=== PATIENT | male | born 1985 | race Caucasian/White ===

== ENCOUNTER 2017-03-27 14:45 | Emergency (ER) | payer MEDICAID ==
[~2017-03-27] VITALS: Ht 185.4 cm; Wt 110.0 kg
[~2017-03-27 14:45] MED LIST: PRIL40CA PO; PROT40TA PO; ZOFR4TAB3 SL
[2017-03-27 14:47] VITALS: BP 134/91; PULSE 108; RESP 16; O2SAT 98
--- NOTE | 2017-03-27 14:57 | PD ---
Physical Exam Date Seen by Provider: Mar 27, 2017 Time Seen by Provider: 14:55 Narrative 32 yo male here for right flank pain. history of kidney stones. has had this for 2 weeks. Went x 2 to [facility]. Diagnosed with UTI and muscle strain. No injury per patient. Nothing seems to help it. Feels nauseous. Vitals are stable in triage. Awaiting Bed placement. Data Data Last Documented VS Vital Signs Date Time Temp Pulse Resp B/P (MAP) Pulse Ox O2 Delivery O2 Flow Rate FiO2 03/27/17 14:47 108 16 134/91 (105) 98 MDM Medical Record Reviewed: Yes Supervised Visit with KAYLENE: No Rickey Bowden Mar 27, 2017 14:57
--- NOTE | 2017-03-27 17:07 | PD ---
HPI . Bilateral flank pain Chief Complaint: Flank/Kidney Pain Time Seen by Provider: 16:40 Travel History International Travel<30 days: No Contact w/Intl Traveler<30days: No Traveled to known affect area: No History of Present Illness HPI This patient presents with a two-week history of bilateral flank pain. He states that it feels like someone is ripping his kidneys out of his body. The pain is severe. There is no exacerbating or relieving factor. Patient states that he's been seen at an outside hospital 2. He states that he was diagnosed with musculoskeletal pain the first time and with a urinary tract infection the second time. He states that his symptoms persist so he decided to come see us today. PFSH Past Medical History Diminished Hearing: No Diverticulitis: Yes Inguinal Hernia: Yes (LEFT SIDE REPAIRED) Kidney Stones: Yes Immunizations Current: Yes Ulcer: Yes Tetanus Vaccination: < 5 Years Influenza Vaccination: No ?: Not Past Surgical History Abdominal Surgery: Yes (HERNIORRHAPHY) Other Surgery: Yes (HERNIA REPAIR IN CHILDHOOD) Social History Alcohol Use: No Tobacco Use: No (QUIT 3 YEARS AGO, 10 PACK YEARS ) Substance Use: No Allergies-Medications (Allergen,Severity, Reaction): Coded Allergies: No Known Allergies (Verified , 03/14/16) Reported Meds & Prescriptions Reported Meds & Active Scripts Active Protonix (Pantoprazole Sodium) 40 Mg Tab 40 Mg PO DAILY Zofran ODT (Ondansetron HCl) 4 Mg Tab 4 Mg SL Q6H PRN FOR NAUSEA/VOMITING Reported Prilosec 40 mg cap (Omeprazole) 40 Mg Cap 40 Mg PO DAILY Review of Systems Except as stated in HPI: all other systems reviewed are Neg General / Constitutional: No: Fever, Chills Gastrointestinal: No: Nausea, Vomiting, Diarrhea Genitourinary: Positive: Flank Pain Physical Exam Narrative GENERAL: Patient looks pretty comfortable. SKIN: Warm and dry. HEAD: Atraumatic. Normocephalic. EYES: Pupils equal and round. ENT: No nasal bleeding or discharge. Mucous membranes pink and moist. NECK: Trachea midline. Neck is supple. CARDIOVASCULAR: Regular rate and rhythm. RESPIRATORY: No accessory muscle use. GASTROINTESTINAL: Abdomen soft, non-tender, nondistended. MUSCULOSKELETAL: No obvious deformities. No edema. Complains of pain on percussion of both CVAs. NEUROLOGICAL: Awake and alert. No obvious cranial nerve deficits. Motor grossly within normal limits. Normal speech. PSYCHIATRIC: Appropriate mood and affect; insight and judgment normal. Data Data Last Documented VS Vital Signs Date Time Temp Pulse Resp B/P (MAP) Pulse Ox O2 Delivery O2 Flow Rate FiO2 03/27/17 16:54 18 03/27/17 14:47 108 134/91 (105) 98 Orders Orders Complete Blood Count With Diff (03/27/17 14:57) Comprehensive Metabolic Panel (03/27/17 14:57) Lipase (03/27/17 14:57) Urinalysis - C+S If Indicated (03/27/17 14:57) Ct Abd/Pel W/O Iv Contrast (03/27/17 16:40) Ketorolac Inj (Toradol Inj) (03/27/17 17:15) Ondansetron Inj (Zofran Inj) (03/27/17 17:15) Urine Culture (03/27/17 16:50) Ceftriaxone Inj (Rocephin Inj) (03/27/17 18:00) Prochlorperazine Inj (Compazine Inj) (03/27/17 18:00) Diphenhydramine Inj (Benadryl Inj) (03/27/17 18:00) Sodium Chlor 0.9% 1000 Ml Inj (Ns 1000 M (03/27/17 18:00) Labs Laboratory Tests Test 03/27/17 16:50 White Blood Count 10.8 TH/MM3 Red Blood Count 4.96 MIL/MM3 Hemoglobin 15.5 GM/DL Hematocrit 46.1 % Mean Corpuscular Volume 92.9 FL Mean Corpuscular Hemoglobin 31.2 PG Mean Corpuscular Hemoglobin Concent 33.6 % Red Cell Distribution Width 14.2 % Platelet Count 276 TH/MM3 Mean Platelet Volume 7.8 FL Neutrophils (%) (Auto) 53.9 % Lymphocytes (%) (Auto) 35.5 % Monocytes (%) (Auto) 8.1 % Eosinophils (%) (Auto) 2.1 % Basophils (%) (Auto) 0.4 % Neutrophils # (Auto) 5.8 TH/MM3 Lymphocytes # (Auto) 3.8 TH/MM3 Monocytes # (Auto) 0.9 TH/MM3 Eosinophils # (Auto) 0.2 TH/MM3 Basophils # (Auto) 0.0 TH/MM3 CBC Comment DIFF FINAL Differential Comment Urine Color YELLOW Urine Turbidity HAZY Urine pH 5.5 Urine Specific [place] 1.028 Urine Protein TRACE mg/dL Urine Glucose (UA) NEG mg/dL Urine Ketones NEG mg/dL Urine Occult Blood MOD Urine Nitrite NEG Urine Bilirubin NEG Urine Urobilinogen LESS THAN 2.0 MG/DL Urine Leukocyte Esterase LARGE Urine RBC 93 /hpf Urine WBC 20 /hpf Urine Squamous Epithelial Cells 1 /hpf Urine Bacteria MOD /hpf Microscopic Urinalysis Comment CULTURE INDICATED Blood Urea Nitrogen 18 MG/DL Creatinine 1.22 MG/DL Random Glucose 83 MG/DL Total Protein 8.1 GM/DL Albumin 4.3 GM/DL Calcium Level 9.5 MG/DL Alkaline Phosphatase 52 U/L Aspartate Amino Transf (AST/SGOT) 17 U/L Alanine Aminotransferase (ALT/SGPT) 28 U/L Total Bilirubin 0.2 MG/DL Sodium Level 141 MEQ/L Potassium Level 3.9 MEQ/L Chloride Level 107 MEQ/L Carbon Dioxide Level 25.4 MEQ/L Anion Gap 9 MEQ/L Estimat Glomerular Filtration Rate 69 ML/MIN Lipase 528 U/L MDM Medical Decision Making Medical Screen Exam Complete: Yes Emergency Medical Condition: Yes Medical Record Reviewed: Yes (I have requested his records from the outside hospital. The records from the outside hospital will be unobtainable today.) Differential Diagnosis Differential diagnosis of flank pain includes but is not limited to kidney stone , pyelonephritis, musculoskeletal pain, PE Narrative Course Patient presents complaining with bilateral flank pain. He has been seen at an outside hospital twice for this. I have requested those records. In the meantime, routine blood work, UA and CT have been ordered. CT: There is a stable 3.7 mm right lower pole renal calculus. This is nonobstructing. There is no hydronephrosis or hydroureter. The adrenal glands, spleen, pancreas, gallbladder, liver and left kidney, stomach, small bowel, large bowel and appendix are normal. Urinary bladder is unremarkable. There is no evidence of bowel obstruction, free fluid or free air. No adenopathy or aneurysm. Few scattered foci of atherosclerotic calcification are noted in the iliac vasculature. CBC & BMP Diagram 03/27/17 16:50 Total Protein 8.1, Albumin 4.3, Calcium Level 9.5, Alkaline Phosphatase 52, Aspartate Amino Transf (AST/SGOT) 17, Alanine Aminotransferase (ALT/SGPT) 28, Total Bilirubin 0.2 UA>>large LE, 93 RBCs, 20 WBCs, mod bact. Rocephin has been ordered. The patient reports that he has been on Cipro for at least 3 days. His antibiotic will be changed to doxycycline. He does not have any evidence of pyelonephritis. He is afebrile with a normal white blood count. There is no mention of any inflammatory changes around his kidneys on the CT report. Diagnosis Primary Impression: Flank pain Additional Impression: Urinary tract infection Qualified Codes: N30.00 - Acute cystitis without hematuria Patient Instructions: Flank Pain (ED), General Instructions, Urinary Tract Infection in Men (DC) Med/Other Pt SpecificInfo: Prescription(s) given Scripts Tramadol (Ultram) 50 Mg Tab 50 MG PO Q4H Y for PAIN, #12 TAB 0 Refills Prov: Sabrina Aly MD 03/27/17 Promethazine (Phenergan) 25 Mg Tablet 25 MG PO Q6H Y for NAUSEA OR VOMITING, #12 TAB 0 Refills Prov: Sabrina Aly MD 03/27/17 Doxycycline Hyclate (Doxycycline Hyclate) 100 Mg Cap 100 MG PO BID for Infection, #20 CAP 0 Refills Prov: Sabrina Aly MD 03/27/17 Disposition: 01 DISCHARGE HOME Condition: Stable Sabrina Aly MD Mar 27, 2017 17:07
[2017-03-27] MEDS ORDERED: KETOROLAC TROMETHAMINE 30 MG/ML (IVP) VIAL IV PUSH ONE (17:15)
[2017-03-27] MEDS ORDERED: ONDANSETRON HCL 4 MG/2 ML VIAL IV PUSH ONE (17:15)
--- NOTE | 2017-03-27 17:24 | RADRPT ---
EXAM DATE/TIME: 03/27/2017 17:07 CORRECTION Corrected on: March 27, 2017; [facility] COMPARISON: CT ABDOMEN & PELVIS W/O CONTRAST, March 04, 2013, 11:17. INDICATIONS : Flank pain, right side for two weeks. ORAL CONTRAST: No oral contrast ingested. RADIATION DOSE: 8.55 CTDIvol (mGy) MEDICAL HISTORY : Renal calculi. Diverticulosis. Ulcer. SURGICAL HISTORY : Hemorrhoidectomy. ENCOUNTER: Initial ACUITY: 2 weeks PAIN SCALE: 8/10 LOCATION: Right upper quadrant TECHNIQUE: Volumetric scanning of the abdomen and pelvis was performed. Using automated exposure control and ad justment of the mA and/or kV according to patient size, radiation dose was kept as low as reasonably achievable to obtain optimal diagnostic quality images. DICOM format image data is available electro nically for review and comparison. FINDINGS: There is a stable 3.7 mm right lower pole renal calculus. This is nonobstructing. There is no hydrone phrosis or hydroureter. The adrenal glands, spleen, pancreas, gallbladder, liver and left kidney, sto mach, small bowel, large bowel and appendix are normal. Urinary bladder is unremarkable. There is no evidence of bowel obstruction, free fluid or free air. No adenopathy or aneurysm. Few scattered foci of atherosclerotic calcification are noted in the iliac vasculature. CONCLUSION: 1. Nonobstructing right lower pole renal calculus. 2. Minimal atherosclerosis. 3. No acute findings. Bob Rajput MD on March 27, 2017 at 17:21 Board Certified Radiologist. This report was verified electronically. Bob Rajput MD on March 27, 2017 at 17:40 Board Certified Radiologist. This report was verified electronically.
[2017-03-27 17:29] LABS: AUTOMATED NEUTROPHIL # 5.8 TH/MM3 (1.8-7.7); BASOPHIL % 0.4 % (0.0-2.0); EOSINOPHIL # 0.2 TH/MM3 (0-0.4); EOSINOPHIL % 2.1 % (0.0-4.0); HEMATOCRIT 46.1 % (39.0-51.0); HEMO FLAGS DIFF FINAL; LYMPH % 35.5 % (9.0-44.0); LYMPHOCYTE # 3.8 TH/MM3 (1.0-4.8); MEAN CELL VOLUME 92.9 FL (80.0-100.0); MEAN CORPUSCULAR HEMOGLOBIN 31.2 PG (27.0-34.0); MEAN CORPUSCULAR HGB CONC 33.6 % (32.0-36.0); MONO % 8.1 % (0.0-8.0); NEUT % 53.9 % (16.0-70.0); PLATELET COUNT 276 TH/MM3 (150-450); RED BLOOD COUNT 4.96 MIL/MM3 (4.50-5.90); RED CELL DISTRIBUTION WIDTH 14.2 % (11.6-17.2); WHITE BLOOD COUNT 10.8 TH/MM3 (4.0-11.0)
[2017-03-27 17:39] LABS: ALKALINE PHOSPHATASE 52 U/L (45-117); ALT (GPT) 28 U/L (12-78); ANION GAP 9 MEQ/L (5-15); AST (GOT) 17 U/L (15-37); BICARBONATE 25.4 MEQ/L (21.0-32.0); BLOOD UREA NITROGEN 18 MG/DL (7-18); CHLORIDE 107 MEQ/L (98-107); GLOMERULAR FILTRATION RATE 69 ML/MIN (>89); POTASSIUM 3.9 MEQ/L (3.5-5.1); SODIUM (NA) 141 MEQ/L (136-145); TOTAL BILIRUBIN ADULT 0.2 MG/DL (0.2-1.0)
[2017-03-27 17:43] LABS: BACTERIA, URINE MOD /hpf; BLOOD, URINE MOD (NEG); COMMENT (UR) CULTURE INDICATED; CULTURE IF INDICATED CULTURE INDICATED; GLUCOSE,URINE NEG (NEG); KETONE, URINE NEG (NEG); NITRITE,URINE NEG (NEG); PH, URINE 5.5 (5.0-8.5); SQUAMOUS EPITHELIAL CELL URINE 1 /hpf (0-5); URINE COLOR YELLOW (YELLW/STRAW)
[2017-03-27] MEDS ORDERED: PROM25TA10 PO (17:54)
[2017-03-27] MEDS ORDERED: ULTR50TA5 PO (17:54)
[2017-03-27] MEDS ORDERED: DOXY100C PO (17:54)
[2017-03-27] MEDS ORDERED: PROCHLORPERAZINE INJ 10 MG/2 ML VIAL IV PUSH ONE (18:00)
[2017-03-27] MEDS ORDERED: SODIUM CHLOR 0.9% 1000 ML INJ 1,000 ML IV ONE (18:00)
[2017-03-27] MEDS ORDERED: diphenhydrAMINE HCL 50 MG/ML VIAL IV PUSH ONE (18:00)
[2017-03-27] MEDS ORDERED: cefTRIAXone INJ 1,000 MG in SODIUM CHLORIDE 0.9% INJ 100 ML IV ONE (18:00)
[2017-03-27 18:22] VITALS: RESP 18
== END 2017-03-27 19:14 | disposition home or self-care (01) ==
LOC: NEPC 14:45
DX: N30.00 Acute cystitis without hematuria (principal); B96.89 Other specified bacterial agents as the cause of diseases classified elsewhere; Z87.891 Personal history of nicotine dependence
CPT/HCPCS: 74176; 80053; 81001; 83690; 85025; 87086; 96365; 96375; 99285; J0696; J0780; J1200; J1885; J2405; J7030

== ENCOUNTER 2017-07-30 03:27 | Emergency (ER) | payer MEDICAID, OTHER ==
[~2017-07-30] VITALS: Ht 188 cm; Wt 110.0 kg
[~2017-07-30 03:27] MED LIST changes: +DOXY100C PO; +PROM25TA10 PO; +TRAM50 PO
[2017-07-30 03:29] VITALS: BP 144/84; PULSE 70; RESP 18; TEMP 97.8; O2SAT 96
[2017-07-30] MEDS ORDERED: TOPI25 PO (03:37)
[2017-07-30] MEDS ORDERED: LORA1TAB12 PO (03:37)
[2017-07-30] MEDS ORDERED: OFLO0.3D9 RIGHT EAR (03:57)
[2017-07-30] MEDS ORDERED: AUGM875T3 PO (03:57)
[2017-07-30] MEDS ORDERED: KETOROLAC TROMETHAMINE 60 MG/2 ML (IM) VIAL IM ONE (04:00)
--- NOTE | 2017-07-30 04:01 | PD ---
HPI Chief Complaint: Pain: Acute or Chronic Time Seen by Provider: 03:56 Travel History International Travel<30 days: No Contact w/Intl Traveler<30days: No Traveled to known affect area: No History of Present Illness HPI 32-year-old male presents for evaluation of right ear/face pain. He reports that he went to sleep last night with mild pain in his right ear. He reports that he woke up this morning with severe pain in his right ear and right side of face. Pain is a sharp pain, constant, no obvious aggravating factors. He reports that he woke up with some tinnitus in the right ear which seems to have subsided. He also noticed some drainage from his right ear this morning that was on his pillowcase. He denies any dental pain but he does note that he has a fractured right maxillary third molar. He denies any sore throat, cough or congestion, recent travel or recent swimming, fevers, chills. He has no other complaints. PFSH Past Medical History Anxiety: Yes Diminished Hearing: No Diverticulitis: Yes Inguinal Hernia: Yes (LEFT SIDE REPAIRED) Kidney Stones: Yes Immunizations Current: Yes Ulcer: Yes Influenza Vaccination: No Past Surgical History Abdominal Surgery: Yes (HERNIORRHAPHY) Other Surgery: Yes (HERNIA REPAIR IN CHILDHOOD) Social History Alcohol Use: No Tobacco Use: No (QUIT 3 YEARS AGO, 10 PACK YEARS ) Substance Use: No Allergies-Medications (Allergen,Severity, Reaction): Coded Allergies: No Known Allergies (Verified Adverse Reaction, Unknown, 07/30/17) Reported Meds & Prescriptions Reported Meds & Active Scripts Active Reported Lorazepam 1 Mg Tab 1 Mg PO Q8H PRN Topamax (Topiramate) 25 Mg Tab 25 Mg PO DAILY Review of Systems Except as stated in HPI: all other systems reviewed are Neg Physical Exam Narrative GENERAL: Well-developed well-nourished male in no acute distress SKIN: Warm and dry. HEAD: Atraumatic. Normocephalic. EYES: Pupils equal and round. No scleral icterus. No injection or drainage. ENT: No nasal bleeding or discharge. Mucous membranes pink and moist. Examination of the right external ear canal reveals some serous fluid in the ear canal obscuring the view of the tympanic membrane. There is pain with manipulation of the right ear. The visible portion of the right external ear canal does not appear edematous or erythematous. There is no mastoid tenderness. There is no facial tenderness or facial edema. Examination of the teeth reveal a few areas of dental decay with no reproducible tenderness to palpation of the teeth. There is no trismus, no oral pharyngeal erythema. NECK: Trachea midline. No JVD. CARDIOVASCULAR: Regular rate and rhythm. No murmur appreciated. RESPIRATORY: No accessory muscle use. Clear to auscultation. Breath sounds equal bilaterally. Data Data Last Documented VS Vital Signs Date Time Temp Pulse Resp B/P (MAP) Pulse Ox O2 Delivery O2 Flow Rate FiO2 07/30/17 03:29 97.8 70 18 144/84 (104) 96 Room Air Orders Orders Ketorolac Inj (Toradol Inj) (07/30/17 04:00) MDM Medical Decision Making Medical Screen Exam Complete: Yes Emergency Medical Condition: Yes Medical Record Reviewed: Yes Differential Diagnosis Perforated tympanic membrane, otitis media, otitis externa, mastoiditis, referred dental pain, cavernous sinus thrombosis, sinusitis, trigeminal neuralgia, dental caries Narrative Course 32-year-old male with right-sided face/ear pain. He had some tinnitus when he woke up he noticed some drainage from his right ear on his pillowcase. He had a little bit of pain in his right ear yesterday before he went to sleep. Examination reveals serous fluid in the right ear canal obscuring the view of the right tympanic membrane. His history is most suspicious for a perforated tympanic membrane, likely secondary to otitis media. The plan would therefore be to discharge the patient with a short course of Augmentin and ofloxacin otic solution. Recommended recheck in one week with primary care physician. He is stable for discharge. Diagnosis Primary Impression: Otalgia, right ear Additional Instructions: Medication as prescribed. Tylenol or Motrin for pain. Avoid getting any water in your right ear canal. Follow up with primary care physician in one week for recheck. Return for any emergent medical conditions. Med/Other Pt SpecificInfo: Prescription(s) given Scripts Ofloxacin Otic Drops (Ofloxacin Otic Drops) 0.3 % Drops 10 DROP RIGHT EAR DAILY for Infection for 10 Days, #1 BOTTLE 0 Refills Prov: Thao Smith MD 07/30/17 Amoxicillin-Clavulanate (Augmentin) 875-125 Mg Tab 1 TAB PO BID for Infection for 10 Days, #20 TAB 0 Refills Prov: Thao Smith MD 07/30/17 Disposition: 01 DISCHARGE HOME Condition: Stable Lamberto Santos Jul 30, 2017 04:01
== END 2017-07-30 04:12 | disposition home or self-care (01) ==
LOC: NEPD 03:27
DX: H92.01 Otalgia, right ear (principal); F41.9 Anxiety disorder, unspecified; Z87.891 Personal history of nicotine dependence
CPT/HCPCS: 96372; 99284; J1885

== ENCOUNTER 2017-08-02 14:29 | Emergency (ER) | payer OTHER ==
[~2017-08-02] VITALS: Ht 188 cm; Wt 112.5 kg
[~2017-08-02 14:29] MED LIST changes: +AUGM875T3 PO; -DOXY100C PO; +LORA1TAB12 PO; +OFLO0.3D9 RIGHT EAR; -PRIL40CA PO; -PROM25TA10 PO; -PROT40TA PO; +TOPI25 PO; -TRAM50 PO; -ZOFR4TAB3 SL
[2017-08-02 14:30] VITALS: BP 136/77; PULSE 94; RESP 18; TEMP 97.6; O2SAT 99
[2017-08-02] MEDS ORDERED: GABA100C4 PO (18:21)
[2017-08-02] MEDS ORDERED: TYLETAB34 PO (18:21)
--- NOTE | 2017-08-02 18:25 | PD ---
HPI Chief Complaint: Facial Pain or Swelling Time Seen by Provider: 17:30 Travel History International Travel<30 days: No Contact w/Intl Traveler<30days: No Traveled to known affect area: No History of Present Illness HPI This patient complains of right sided facial pain. Duration 2 weeks. No injury or fever. He has history of trigeminal neuralgia on the left side of his face. That had resolved. No alleviating factors. PFSH Past Medical History Anxiety: Yes Diminished Hearing: No Diverticulitis: Yes Inguinal Hernia: Yes (LEFT SIDE REPAIRED) Kidney Stones: Yes Immunizations Current: Yes Ulcer: Yes ?: Not Past Surgical History Abdominal Surgery: Yes (HERNIORRHAPHY) Other Surgery: Yes (HERNIA REPAIR IN CHILDHOOD) Social History Alcohol Use: No Tobacco Use: No (QUIT 3 YEARS AGO, 10 PACK YEARS ) Substance Use: No Allergies-Medications (Allergen,Severity, Reaction): Coded Allergies: No Known Allergies (Verified Adverse Reaction, Unknown, 07/30/17) Reported Meds & Prescriptions Reported Meds & Active Scripts Active Tylenol-Codeine #3 (Acetaminophen-Codeine) 300-30 mg Tab 1 Tab PO Q4H PRN Gabapentin 100 Mg Cap 100 Mg PO TID Ofloxacin Otic Drops 0.3 % Drops 10 Drop RIGHT EAR DAILY 10 Days Augmentin (Amoxicillin-Clavulanate) 875-125 Mg Tab 1 Tab PO BID 10 Days Reported Lorazepam 1 Mg Tab 1 Mg PO Q8H PRN Topamax (Topiramate) 25 Mg Tab 25 Mg PO DAILY Review of Systems Cardiovascular: No: Chest Pain or Discomfort Respiratory: No: Cough Gastrointestinal: No: Vomiting Physical Exam Narrative NECK: Symmetrical appearance, midline trachea. No mass or crepitus. Thyroid without enlargement, tenderness, or mass. Examination the face is normal Oral cavity clear Right TM normal NEUROLOGICAL: Awake and alert. Pupils are equal round and reactive. Motor and sensory grossly within normal limits. Five out of 5 muscle strength in all muscle groups. Normal speech. Data Data Last Documented VS Vital Signs Date Time Temp Pulse Resp B/P (MAP) Pulse Ox O2 Delivery O2 Flow Rate FiO2 08/02/17 14:30 97.6 94 18 136/77 (96) 99 Room Air MDM Medical Decision Making Medical Screen Exam Complete: Yes Emergency Medical Condition: Yes Medical Record Reviewed: Yes Differential Diagnosis Trigeminal neuralgia, otitis, pharyngitis Narrative Course I have reviewed the patient's electronic medical record. Reviewed his visit here from earlier this month Presentation here seems most consistent with a right sided trigeminal neuralgia. His pain matches the nerve distributions precisely. I don't see any other obvious cause. Throat and ear and sinuses seem okay I prescribed him a course of Neurontin and some Tylenol 3 Diagnosis Primary Impression: Trigeminal neuralgia of right side of face Additional Instructions: The patient was warned about potential sedation for the medications they will receive on prescription. The patient was advised to follow up with their physician and return if they worsen. Med/Other Pt SpecificInfo: Prescription(s) given Scripts Acetaminophen-Codeine (Tylenol-Codeine #3) 300-30 mg Tab 1 TAB PO Q4H Y for PAIN, #20 TAB 0 Refills Prov: Jos Hernandez MD 08/02/17 Gabapentin (Gabapentin) 100 Mg Cap 100 MG PO TID, #60 CAP 0 Refills Prov: Jos Hernandez MD 08/02/17 Disposition: 01 DISCHARGE HOME Condition: Stable Jos Hernandez MD Aug 02, 2017 18:25
== END 2017-08-02 18:40 | disposition home or self-care (01) ==
LOC: NEPD 14:29
DX: G50.0 Trigeminal neuralgia (principal); F41.9 Anxiety disorder, unspecified; Z87.19 Personal history of other diseases of the digestive system; Z87.442 Personal history of urinary calculi; Z87.891 Personal history of nicotine dependence; Z79.899 Other long term (current) drug therapy
CPT/HCPCS: 99284

== ENCOUNTER 2017-08-12 16:20 | Emergency (ER) | payer OTHER ==
[~2017-08-12 16:20] MED LIST changes: +GABA100C4 PO; +TYLETAB34 PO
[2017-08-12 16:22] VITALS: BP 137/97; PULSE 104; RESP 16; TEMP 98.4; O2SAT 95
--- NOTE | 2017-08-12 17:28 | RADRPT ---
EXAM DATE/TIME: 08/12/2017 17:14 [facility] COMPARISON: No previous studies available for comparison. INDICATIONS : Chest pain. MEDICAL HISTORY : None. SURGICAL HISTORY : None. ENCOUNTER: Initial ACUITY: 1 day PAIN SCORE: 10/10 LOCATION: Bilateral chest FINDINGS: PA and lateral views of the chest demonstrate the lungs to be symmetrically aerated without evidence of mass, infiltrate or effusion. The cardiomediastinal contours are unremarkable. Osseous structure s are intact. CONCLUSION: No acute cardiopulmonary process. Olivier Lowry MD on August 12, 2017 at 17:21 Board Certified Radiologist. This report was verified electronically.
[2017-08-12 18:58] LABS: AUTOMATED NEUTROPHIL # 15.8 TH/MM3 (1.8-7.7); BASOPHIL % 0.3 % (0.0-2.0); HEMATOCRIT 43.3 % (39.0-51.0); HEMOGLOBIN 15.4 GM/DL (13.0-17.0); LYMPH % 11.6 % (9.0-44.0); LYMPHOCYTE # 2.3 TH/MM3 (1.0-4.8); MEAN CELL VOLUME 94.3 FL (80.0-100.0); MEAN CORPUSCULAR HEMOGLOBIN 33.5 PG (27.0-34.0); MEAN CORPUSCULAR HGB CONC 35.6 % (32.0-36.0); MEAN PLATELET VOLUME 8.4 FL (7.0-11.0); MONO % 6.9 % (0.0-8.0); MONOCYTE # 1.3 TH/MM3 (0-0.9); NEUT % 81.2 % (16.0-70.0); PLATELET COUNT 290 TH/MM3 (150-450); WHITE BLOOD COUNT 19.4 TH/MM3 (4.0-11.0)
[2017-08-12 19:09] LABS: PROTHROMBIN TIME - PATIENT 10.3 SEC (9.8-11.6)
[2017-08-12 19:21] LABS: ALBUMIN 4.2 GM/DL (3.4-5.0); AST (GOT) 13 U/L (15-37); CALCIUM 9.5 MG/DL (8.5-10.1); CHLORIDE 107 MEQ/L (98-107); CREATININE 1.01 MG/DL (0.60-1.30); GLOMERULAR FILTRATION RATE 86 ML/MIN (>89); GLUCOSE,RANDOM 103 MG/DL (74-106); LIPASE 196 U/L (73-393); MAGNESIUM 2.1 MG/DL (1.5-2.5); SODIUM (NA) 138 MEQ/L (136-145)
[2017-08-12 19:27] LABS: ALKALINE PHOSPHATASE 49 U/L (45-117); ALT (GPT) 36 U/L (12-78); BLOOD UREA NITROGEN 15 MG/DL (7-18); TOTAL BILIRUBIN ADULT 0.2 MG/DL (0.2-1.0); TOTAL PROTEIN 8.1 GM/DL (6.4-8.2); TROPONIN I LESS THAN 0.02 NG/ML (0.02-0.05)
--- NOTE | 2017-08-12 19:52 | PD ---
HPI Chief Complaint: Medical Clearance Time Seen by Provider: 19:36 Travel History International Travel<30 days: No Contact w/Intl Traveler<30days: No Traveled to known affect area: No History of Present Illness HPI Patient is a 32-year-old male presents emergency department for evaluation of adverse medication effect. The patient states his been feeling very jittery having some trouble sleeping ever since he received a dose of Imitrex IV yesterday at an outside facility. Patient states he has a history of migraines when they're at a dose of Imitrex given to him through an IV in his right hand and since then he's been feeling very jittery. States that he is also been having some persistent headache but does not want any treatment for that as he states only mild. Denies any focalized weakness denies any shortness of breath cough or congestion. Patient does also endorse some right-sided chest pain radiating down his right arm. Denies any fevers. States symptoms are moderate , context as above, associated signs symptoms as above, duration is 24 hours. PFSH Past Medical History Anxiety: Yes Diminished Hearing: No Diverticulitis: Yes Inguinal Hernia: Yes (LEFT SIDE REPAIRED) Kidney Stones: Yes Immunizations Current: Yes Ulcer: Yes Past Surgical History Abdominal Surgery: Yes (HERNIORRHAPHY) Other Surgery: Yes (HERNIA REPAIR IN CHILDHOOD) Social History Alcohol Use: No Tobacco Use: No (QUIT 3 YEARS AGO, 10 PACK YEARS ) Substance Use: No Allergies-Medications (Allergen,Severity, Reaction): Coded Allergies: No Known Allergies (Verified Adverse Reaction, Unknown, 08/12/17) Reported Meds & Prescriptions Reported Meds & Active Scripts Active Reported Lorazepam 1 Mg Tab 1 Mg PO Q8H PRN Topamax (Topiramate) 25 Mg Tab 25 Mg PO DAILY Review of Systems Except as stated in HPI: all other systems reviewed are Neg Physical Exam Narrative GENERAL: Well-developed well-nourished no obvious distress. SKIN: Focused skin assessment warm/dry. Right hand IV site clean dry and intact. No signs of infection. HEAD: Atraumatic. Normocephalic. EYES: Pupils equal and round. No scleral icterus. No injection or drainage. ENT: No nasal bleeding or discharge. Mucous membranes pink and moist. NECK: Trachea midline. No JVD. CARDIOVASCULAR: Regular rate and rhythm. No murmur appreciated. RESPIRATORY: No accessory muscle use. Clear to auscultation. Breath sounds equal bilaterally. GASTROINTESTINAL: Abdomen soft, non-tender, nondistended. Hepatic and splenic margins not palpable. MUSCULOSKELETAL: No obvious deformities. No clubbing. No cyanosis. No edema. NEUROLOGICAL: Awake and alert. Cranial nerves II through XII are grossly intact and nonfocal, 5 out of 5 strength in all 4 extremity's. PSYCHIATRIC: Appropriate mood and affect; insight and judgment normal. Data Data Last Documented VS Vital Signs Date Time Temp Pulse Resp B/P (MAP) Pulse Ox O2 Delivery O2 Flow Rate FiO2 08/12/17 21:35 08/12/17 20:08 69 16 98 Room Air 08/12/17 16:22 98.4 Orders Orders Electrocardiogram (08/12/17 16:52) Ckmb (Isoenzyme) Profile (08/12/17 16:52) Complete Blood Count With Diff (08/12/17 16:52) Comprehensive Metabolic Panel (08/12/17 16:52) Magnesium (Mg) (08/12/17 16:52) Prothrombin Time / Inr (Pt) (08/12/17 16:52) Act Partial Throm Time (Ptt) (08/12/17 16:52) Troponin I (08/12/17 16:52) Lipase (08/12/17 16:52) Chest, Pa & Lat (08/12/17 ) Ondansetron Odt (Zofran Odt) (08/12/17 21:15) Ed Discharge Order (08/12/17 21:18) Labs Laboratory Tests Test 08/12/17 18:02 White Blood Count 19.4 TH/MM3 Red Blood Count 4.60 MIL/MM3 Hemoglobin 15.4 GM/DL Hematocrit 43.3 % Mean Corpuscular Volume 94.3 FL Mean Corpuscular Hemoglobin 33.5 PG Mean Corpuscular Hemoglobin Concent 35.6 % Red Cell Distribution Width 14.0 % Platelet Count 290 TH/MM3 Mean Platelet Volume 8.4 FL Neutrophils (%) (Auto) 81.2 % Lymphocytes (%) (Auto) 11.6 % Monocytes (%) (Auto) 6.9 % Eosinophils (%) (Auto) 0.0 % Basophils (%) (Auto) 0.3 % Neutrophils # (Auto) 15.8 TH/MM3 Lymphocytes # (Auto) 2.3 TH/MM3 Monocytes # (Auto) 1.3 TH/MM3 Eosinophils # (Auto) 0.0 TH/MM3 Basophils # (Auto) 0.0 TH/MM3 CBC Comment AUTO DIFF Differential Comment AUTO DIFF CONFIRMED Platelet Estimate NORMAL Platelet Morphology Comment NORMAL Prothrombin Time 10.3 SEC Prothromb Time International Ratio 1.0 RATIO Activated Partial Thromboplast Time 23.8 SEC Blood Urea Nitrogen 15 MG/DL Creatinine 1.01 MG/DL Random Glucose 103 MG/DL Total Protein 8.1 GM/DL Albumin 4.2 GM/DL Calcium Level 9.5 MG/DL Magnesium Level 2.1 MG/DL Alkaline Phosphatase 49 U/L Aspartate Amino Transf (AST/SGOT) 13 U/L Alanine Aminotransferase (ALT/SGPT) 36 U/L Total Bilirubin 0.2 MG/DL Sodium Level 138 MEQ/L Potassium Level 3.9 MEQ/L Chloride Level 107 MEQ/L Carbon Dioxide Level 24.0 MEQ/L Anion Gap 7 MEQ/L Estimat Glomerular Filtration Rate 86 ML/MIN Total Creatine Kinase 93 U/L Troponin I LESS THAN 0.02 NG/ML Lipase 196 U/L MDM Medical Decision Making Medical Screen Exam Complete: Yes Emergency Medical Condition: Yes Differential Diagnosis ACS unlikely CA likely, anxiety, medication effects. Narrative Course Patient roomed emerged permit, initial workup including basic labs only significant for an elevated white blood cell count. Patient denies any fevers cough congestion rashes runny nose or other sources of infection. The headache which was his initial complaint at other hospital seems to be of a benign nature , there is no nuchal rigidity, there is no red flags for life-threatening headache. The patient did receive a dose of Imitrex IV according to him, the half-life of this medication should have ensured that his been cleared from his system by now. The patient is reassured that it does not appear to be the medication causing him his issues. He feels elated and would like to follow-up with his primary care physician. Having excluded life-threatening cause of the symptoms he is stable to do so. Discussed return to ED criteria. Diagnosis Primary Impression: Medication adverse effect Disposition: 01 DISCHARGE HOME Condition: Stable Arnie Trujillo MD Aug 12, 2017 19:52
[2017-08-12 20:08] VITALS: BP 152/84; PULSE 69; RESP 16; O2SAT 98
[2017-08-12] MEDS ORDERED: ONDANSETRON ODT 4 MG TAB PO ONE (21:15)
--- NOTE | 2017-08-13 17:04 | EKG ---
Date Performed: 08/12/2017 Time Performed: 18:04:06 PTAGE: 32 years EKG: SINUS BRADYCARDIA WITH SINUS ARRHYTHMIA BORDERLINE ECG PREVIOUS TRACING : 03/04/2013 11.03 Compared to the previous tracing rate slower DOCTOR: Nadine Sharpe Interpretating Date/Time 08/13/2017 17:03:09
== END 2017-08-12 21:51 | disposition home or self-care (01) ==
LOC: NEPE 16:20
DX: T39.8X5A Adverse effect of other nonopioid analgesics and antipyretics, not elsewhere classified, initial encounter (principal); R00.1 Bradycardia, unspecified; I49.9 Cardiac arrhythmia, unspecified; F41.9 Anxiety disorder, unspecified; Z87.19 Personal history of other diseases of the digestive system; Z87.442 Personal history of urinary calculi
CPT/HCPCS: 71046; 80053; 82550; 83690; 83735; 84484; 85025; 85610; 85730; 93005; 99285

== ENCOUNTER 2017-12-18 15:09 | Emergency (ER) | payer OTHER ==
[~2017-12-18] VITALS: Ht 185.4 cm; Wt 109.9 kg
[~2017-12-18 15:09] MED LIST changes: -AUGM875T3 PO; -GABA100C4 PO; -OFLO0.3D9 RIGHT EAR; -TYLETAB34 PO
[2017-12-18 15:12] VITALS: BP 142/87; PULSE 99; RESP 16; TEMP 98.6; O2SAT 96
[2017-12-18] MEDS ORDERED: TRAM50TA PO (15:21)
[2017-12-18] MEDS ORDERED: DICL75TA PO (15:21)
--- NOTE | 2017-12-18 15:28 | PD ---
HPI Chief Complaint: Musculoskeletal Complaint Time Seen by Provider: 15:14 Travel History International Travel<30 days: No Contact w/Intl Traveler<30days: No Traveled to known affect area: No History of Present Illness HPI 32-year-old male the presents to the ED for evaluation of right elbow pain. Patient reports that she has had this for about 2 days now. Started yesterday with a more significant today. Per patient the pain is only when he lifts his arm as well as when he makes a fist. Per patient is on his right arm. He is right-hand dominant. He denies any injuries but does state that he has been working out more than usual. He denies any particular injury however. No history of this in the past. No previous surgeries. No numbness, tingling, weakness. He does state that he feels like does not drop things on his right arm secondary to the pain. He does become sharp. Pain when it occurs is 8 out of 10. Otherwise 4 out of 10. Has not taken anything for this. PFSH Past Medical History Anxiety: Yes Diminished Hearing: No Diverticulitis: Yes Inguinal Hernia: Yes (LEFT SIDE REPAIRED) Kidney Stones: Yes Immunizations Current: Yes Ulcer: Yes Tetanus Vaccination: < 5 Years Influenza Vaccination: No Past Surgical History Surgical History: No Previous Surgery Other Surgery: Yes (HERNIA REPAIR IN CHILDHOOD) Social History Alcohol Use: No Tobacco Use: Yes (occ cig, ) Substance Use: No Allergies-Medications (Allergen,Severity, Reaction): Coded Allergies: No Known Allergies (Verified Adverse Reaction, Unknown, 12/18/17) Reported Meds & Prescriptions Reported Meds & Active Scripts Active Tramadol (Tramadol HCl) 50 Mg Tab 50 Mg PO Q6H PRN Diclofenac Sodium DR (Diclofenac Sodium) 75 Mg Tabdr 75 Mg PO BID PRN Review of Systems Except as stated in HPI: all other systems reviewed are Neg Physical Exam Narrative GENERAL: SKIN: Warm and dry. HEAD: Atraumatic. Normocephalic. EYES: Pupils equal and round. No scleral icterus. No injection or drainage. ENT: No nasal bleeding or discharge. Mucous membranes pink and moist. Tongue is midline. No uvula deviation. NECK: Trachea midline. No JVD. CARDIOVASCULAR: Regular rate and rhythm. RESPIRATORY: No accessory muscle use. Clear to auscultation. Breath sounds equal bilaterally. GASTROINTESTINAL: Abdomen soft, non-tender, nondistended. Hepatic and splenic margins not palpable. MUSCULOSKELETAL: Extremities without clubbing, cyanosis, or edema. No obvious deformities. Full range of motion of the upper and lower extremities bilaterally. There is deformity noted. No obvious swelling. Pain reproducible with extension of the wrist on the right arm as well as with city editor and flexion of the arm. Otherwise minimal pain. No reproducible otherwise. 2 + pulses bilaterally. Phalen's test negative. NEUROLOGICAL: Awake and alert. No obvious cranial nerve deficits. Motor grossly within normal limits. Five out of 5 muscle strength in the arms and legs. Normal speech. PSYCHIATRIC: Appropriate mood and affect; insight and judgment normal. Data Data Last Documented VS Vital Signs Date Time Temp Pulse Resp B/P (MAP) Pulse Ox O2 Delivery O2 Flow Rate FiO2 12/18/17 15:12 98.6 99 16 142/87 (105) 96 Orders Orders Ed Discharge Order (12/18/17 15:23) [facility] Medical Decision Making Medical Screen Exam Complete: Yes Emergency Medical Condition: Yes Medical Record Reviewed: Yes Differential Diagnosis Tennis elbow versus strain versus olecranon impingement syndrome Narrative Course 32-year-old male that presents to the ED for evaluation of right arm pain. Patient was properly examined and was found to have signs and symptoms very consistent with appears to be likely tennis elbow. Patient able to move the arm fully but has pain only with extension of the left hand as well as with movements on the olecranon area. Could be also olecranon impingement syndrome but less likely as patient has no neurological deficits. Likely from overuse from the gym. At this time a recommend trial of anti-inflammatory and pain medication. Patient was given a short prescription for tramadol in the clinic sodium. Ice or warm compresses endorsed. I do recommend brace. Follow-up with PCP. See ED if worsening symptoms Diagnosis Primary Impression: Tennis elbow syndrome Qualified Codes: M77.11 - Lateral epicondylitis, right elbow Patient Instructions: General Instructions Additional Instructions: Take medications as prescribed. Follow-up with PCP. See ED for any worsening symptoms. Do not drink or drive while taking pain medication. Apply ice or heat as needed for pain Med/Other Pt SpecificInfo: Prescription(s) given Scripts Tramadol (Tramadol) 50 Mg Tab 50 MG PO Q6H Y for PAIN, #12 TAB 0 Refills Prov: Thomas Tate MD 12/18/[address] (Diclofenac Sodium DR) 75 Mg Tabdr 75 MG PO BID Y for PAIN SCALE 1 TO 10, #20 TAB 0 Refills Prov: Thomas Tate MD 12/18/17 Disposition: 01 DISCHARGE HOME Condition: Rickey Alcocer December 18, 2017 15:28
== END 2017-12-18 15:31 | disposition home or self-care (01) ==
LOC: PHEFT 15:09
DX: M77.11 Lateral epicondylitis, right elbow (principal); F41.9 Anxiety disorder, unspecified; F17.210 Nicotine dependence, cigarettes, uncomplicated; Z87.19 Personal history of other diseases of the digestive system; Z87.442 Personal history of urinary calculi
CPT/HCPCS: 99283

== ENCOUNTER 2018-01-02 03:41 | Emergency (ER) | payer OTHER ==
[~2018-01-02] VITALS: Ht 188 cm; Wt 110.0 kg
[~2018-01-02 03:41] MED LIST changes: +DICL75TA PO; -LORA1TAB12 PO; -TOPI25 PO; +TRAM50TA PO
[2018-01-02 03:43] VITALS: BP 132/85; PULSE 88; RESP 16; TEMP 97.8; O2SAT 97
[2018-01-02] MEDS ORDERED: METOCLOPRAMIDE HCL 10 MG/2 ML VIAL IV PUSH ONE (04:15)
[2018-01-02] MEDS ORDERED: SODIUM CHLOR 0.9% 1000 ML INJ 1,000 ML IV SCH (04:15)
[2018-01-02] MEDS ORDERED: SODIUM CHLORIDE 0.9% FLUSH 10 ML FLUSH IVF PRN (04:15)
[2018-01-02 04:16] VITALS: BP_SYST 140; BP_SYST 152; BP_DIAS 77; BP_DIAS 81; RESP 16
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
[2018-01-02] MEDS ORDERED: ONDANSETRON ODT 4 MG TAB PO ONE (04:30)
[2018-01-02 04:51] LABS: AUTOMATED NEUTROPHIL # 5.5 TH/MM3 (1.8-7.7); BASOPHIL # 0.1 TH/MM3 (0-0.2); BASOPHIL % 0.9 % (0.0-2.0); EOSINOPHIL # 0.2 TH/MM3 (0-0.4); EOSINOPHIL % 2.1 % (0.0-4.0); HEMATOCRIT 45.4 % (39.0-51.0); HEMOGLOBIN 15.3 GM/DL (13.0-17.0); LYMPH % 28.6 % (9.0-44.0); LYMPHOCYTE # 2.7 TH/MM3 (1.0-4.8); MEAN CORPUSCULAR HEMOGLOBIN 31.6 PG (27.0-34.0); MEAN CORPUSCULAR HGB CONC 33.7 % (32.0-36.0); MONO % 9.9 % (0.0-8.0); MONOCYTE # 0.9 TH/MM3 (0-0.9); NEUT % 58.5 % (16.0-70.0); PLATELET COUNT 294 TH/MM3 (150-450); RED BLOOD COUNT 4.83 MIL/MM3 (4.50-5.90); RED CELL DISTRIBUTION WIDTH 14.4 % (11.6-17.2); WHITE BLOOD COUNT 9.5 TH/MM3 (4.0-11.0)
[2018-01-02 05:03] LABS: INTERNATIONAL NORMALIZED RATIO 1.1 RATIO; PROTHROMBIN TIME - PATIENT 11.5 SEC (9.8-11.6)
--- NOTE | 2018-01-02 05:04 | RADRPT ---
EXAM DATE: 01/02/2018 4:35 AM EDT AGE/SEX: 32 years / Male INDICATIONS: Patient states vomiting blood. CLINICAL DATA: This is the patient's initial encounter. Patient reports that signs and symptoms have been present for 1 day and indicates a pain score of 3/10. MEDICAL/SURGICAL HISTORY: None. None. [place] [facility] [place] . FINDINGS: The lungs are clear without infiltrate, nodule, or mass. There is no appreciable pleural effusion for technique. Heart and mediastinum are unremarkable. CONCLUSION: No acute cardiopulmonary disease. Electronically signed by: Jannet Meyer MD 01/02/2018 5:03 AM EDT
[2018-01-02 05:07] LABS: ALBUMIN 3.5 GM/DL (3.4-5.0); ALT (GPT) 26 U/L (12-78); AST (GOT) 24 U/L (15-37); BICARBONATE 29.7 MEQ/L (21.0-32.0); BLOOD UREA NITROGEN 11 MG/DL (7-18); CALCIUM 8.7 MG/DL (8.5-10.1); CHLORIDE 103 MEQ/L (98-107); CREATININE 1.44 MG/DL (0.60-1.30); GLOMERULAR FILTRATION RATE 57 ML/MIN (>89); GLUCOSE,RANDOM 76 MG/DL (74-106); MAGNESIUM 1.9 MG/DL (1.5-2.5); SODIUM (NA) 142 MEQ/L (136-145)
[2018-01-02 05:09] LABS: ALKALINE PHOSPHATASE 28 U/L (45-117); TOTAL BILIRUBIN ADULT 0.4 MG/DL (0.2-1.0); TOTAL PROTEIN 6.7 GM/DL (6.4-8.2)
[2018-01-02] MEDS ORDERED: ZOFR4TAB3 SL (06:27)
== END 2018-01-02 06:42 | disposition home or self-care (01) ==
LOC: NEPC 03:41
DX: K29.00 Acute gastritis without bleeding (principal); R11.0 Nausea; Z72.0 Tobacco use; Z87.11 Personal history of peptic ulcer disease
CPT/HCPCS: 71045; 80053; 83690; 83735; 85025; 85610; 85730; 86850; 86900; 86901; 99284; J7030